=== PATIENT | female | born 1955 | race African-American/Black ===

== ENCOUNTER 2019-01-06 21:56 | Emergency (ER) | payer OTHER ==
[~2019-01-06] VITALS: Ht 162.6 cm; Wt 86.6 kg
[2019-01-07] VITALS: BP 161/76
[2019-01-07] MEDS ORDERED: ACETAMINOPHEN 500 MG TAB PO ONE
== END 2019-01-07 00:43 | disposition home or self-care (01) ==
LOC: ER 22:02
DX: M54.5 Low back pain (principal); R51 Headache; I10 Essential (primary) hypertension; Z88.0 Allergy status to penicillin; V43.52XA Car driver injured in collision with other type car in traffic accident, initial encounter; Y93.89 Activity, other specified; Y92.488 Other paved roadways as the place of occurrence of the external cause; Y99.8 Other external cause status
CPT/HCPCS: 72131